=== PATIENT | female | born 1980 | race Caucasian/White ===

== ENCOUNTER 2020-05-14 18:03 | Outpatient (CLI) | payer MEDICAID, SELFPAY ==
[2020-05-14] VITALS (24 sets, daily range): BP systolic 0–137; BP diastolic 0–78; PULSE 90–119; RESP 18; TEMP 36.9; O2SAT 96–98; BMI 27.4
--- NOTE | 2020-05-14 18:17 | USR_ITS ---
PROCEDURE INFORMATION: Exam: US , Limited Exam date and time: 05/14/2020 6:57 PM Age: 39 years old Clinical indication: Lmp or gestational age (in weeks): 33 w 6 d; Other: Bleeding; ; Additional info: Vag bleeding, dates, placenta location, efw, wellbeing TECHNIQUE: Imaging protocol: Real-time ultrasound of the maternal uterus with image documentation. Exam focused on the clinical indication. COMPARISON: [facility] OB > 14 weeks 05/25/2016 2:50 PM FINDINGS: Gestation: Single intrauterine gestation in cephalic presentation with positive heart activity 138 bpm. age 33 weeks 6 days. LOGAN 06/26/2020. Placenta: The placenta is not well imaged. The placenta appears grossly posterior. No grossly visible abruption or previa. Amniotic fluid index: Amniotic fluid index measured at 9.3 cm. BIOMETRY: Estimated weight: weight measured 5 lb 1 oz. Biparietal diameter: BPD 33 weeks 6 days. Head circumference 34 weeks 2 days. Abdominal circumference 34 weeks 0 days. Femur length 33 weeks 1 day. Other findings: age 33 weeks 6 days. LOGAN 06/26/2020. HC/AC ratio 1.02. FL/BPD 76.4. FL/HC 20.9. FL/AC 21.4. All aforemention values are within normal limits. US/ OB limited [id number] IMPRESSION: 1. Single intrauterine gestation in cephalic presentation with positive heart activity and measured gestational age 33 weeks 6 days. 2. Placenta not well imaged but appears grossly posterior without visible abruption or previa.
[2020-05-14] MEDS: lactated ringers 1,000 ML 999 ML IV (18:35)
[2020-05-14 18:42] LABS: Basophils # 0.1 10^3/uL (0.0-0.1); Basophils % 0.2 %; Eosinophils # 0.3 10^3/uL (0.0-0.8); Eosinophils % 1.3 %; Hematocrit 37.3 % (37.0-47.0); Hemoglobin 12.4 g/dL (11.5-15.3); Lymphocytes # 2.3 10^3/uL (0.8-4.8); Lymphocytes % 10.5 %; Mean Corpuscular HGB Conc 33.2 g/dL (30.0-36.0); Mean Corpuscular Hemoglobin 27.8 pg (28.0-34.0); Mean Corpuscular Volume 83.6 fL (81-99); Mean Platelet Volume 10.4 fL (7.4-10.4); Monocytes # 0.9 10^3/uL (0.2-0.9); Monocytes % 4.4 %; Neutrophils # 17.88 10^3/uL (1.8-7.7); Nucleated Red Blood Cells % 0 %; Platelet Count 280 10^3/cmm (130-400); Red Blood Count 4.46 10^6/uL (4.1-5.3); Red Cell Distribution Width 13.4 % (12.1-15.1); White Blood Count 21.6 10^3/uL (4.0-10.0)
--- NOTE | 2020-05-14 18:46 | PC.NURSE ---
pt arrived to L/D via EMS, had 18g right AC saline lock
[2020-05-14 18:56] LABS: Alanine Aminotransferase 9 U/L (0-33); Albumin Level 3.7 g/dL (3.5-5.2); Alkaline Phosphatase 206 IU/L (35-105); Anion Gap 18.6 (5-19); Aspartate Amino Transferase 12 U/L (0-32); Blood Urea Nitrogen 6 mg/dL (6-20); Calcium 8.7 mg/dL (8.5-10.5); Carbon Dioxide 18 mmol/L (22-29); Chloride 101 mmol/L (98-107); Globulin 2.9 g/dL (1.3-4.6); Glomerular Filtration Rate 179.6 mL/min (90-130); Glucose 119 mg/dL (65-115); Osmolality Calculated 275 mOsm/kg (285-295); Potassium 3.6 mmol/L (3.5-5.1); Sodium 134 mmol/L (136-145); Total Bilirubin 0.5 mg/dL (0.15-1.2); Total Protein 6.6 g/dL (6.6-8.7)
[2020-05-14 19:02] LABS: Amphetamines Screen Urine Positive (Negative); Barbiturates Screen Urine Negative (Negative); Benzodiazepines Screen Urine Negative (Negative); Cocaine Screen Urine Negative (Negative); Opiate Screen Urine Positive (Negative); PCP Screen Urine Negative (Negative); THC Screen Urine Negative (Negative)
--- NOTE | 2020-05-14 19:08 | PM.OBGYHP ---
Providers/Chief Complaint Chief Complaint: vaginal bleeding HPI CHEMICAL PLANT OPERATOR History of Present Illness Rosa Isela Land is a 39 year old female who is 7, para 6. She felt that she was approximately 30 weeks gestation. She began bleeding at home when she went to the bathroom. Initially it was very small amount and then she felt like it gushed out . EMS was called and the patient was brought to [facility] Delivery with a soaked pieces of clothing in the genital area and bleeding. A stat ultrasound was done and laboratory work was ordered. 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 The placenta is posterior. She does have decreased amniotic fluid with an TERRELL of 9. She is not osman. She does state that she does not drink very much fluid except for sodas. She has a long history of drug abuse including opioids and methamphetamine and THC. She states that she last took a hydrocodone yesterday. She has not seen anyone for this and she claims that the reason she has in is because of her concern because of the COVID virus. Presently she does not have custody of her other children. Present Details : 7 Para: 6 Review of Systems Const: Denies: fever(s), chills or body aches ENMT: Denies: throat pain or hoarseness Card: Denies: chest pain, palpitations, swelling of feet/ankles or lightheadedness Resp: Denies: dyspnea, productive cough, non-productive cough or wheezing GI: Denies: abdominal pain, nausea, vomiting or hematochezia : Reports: vaginal bleeding (Moderate amount, CBC is pending.); Denies: flank pain or dyspareunia Neuro: Reports: confusion (Nurses report some confusion.); Denies: headache(s), numbness in extremities, weakness in extremities or difficulty walking Psych: Reports: anxiety Medications/Allergies Home Medications Medication Instructions Recorded Confirmed Last Taken Type vit no.[id number] 1 tab PO DAILY 05/14/20 05/14/20 Unknown History [ Vitamin] Allergies Allergy/AdvReac Type Severity Reaction Status Date / Time tramadol Allergy Unknown Verified 05/14/20 18:54 Vitals/I&O/Wt Last Vital Signs Temp 98.5 F 05/14/20 18:17 Pulse 94 05/14/20 18:37 Resp 18 05/14/20 18:17 BP 119/59 05/14/20 18:37 Pulse Ox 96 05/14/20 19:04 Physical Exam Const: COMMON NORMALS: no acute distress GENERAL APPEARANCE: cooperative NUTRITIONAL APPEARANCE: thin ORIENTATION/CONSCIOUSNESS: Yes awake, Yes oriented to person and Yes oriented to place HENMT: HEAD & SCALP: normal to inspection FACE & SINUS: normal facial exam Resp: COMMON NORMALS: normal respiratory effort, No retractions, No use of accessory muscles and clear to auscultation bilaterally Cardio: COMMON NORMALS: regular rate, regular rhythm and No murmurs present (Cardio) GI: COMMON NORMALS: Normal to inspection, nondistended, normoactive bowel sounds present and non-tender PALPATION: Yes Soft to palpation : COMMON NORMALS: Yes no CVA tenderness and Yes normal external appearance OB/EXTERNAL & SPECULUM: vaginal bleeding (Mild on examination at this time.) MANUAL OB EXAM: dilated 1 cm and effaced 25% UTERUS PALPATION: No Uterus tender AMNIOTIC FLUID: no fluid Extremity: COMMON NORMALS: normal to inspection, full ROM and no pedal edema Neuro: COMMON NORMALS: CN's II-XII intact bilaterally, moves all extremities and no focal motor deficits Psych: COMMON NORMALS: cooperative MOOD & AFFECT: Yes anxious (Very happy to find that the baby looks fine on ultrasound.) Data : 05/14/20 18:20 05/14/20 18:20 A&P Assessment and plan (1) 7, currently : She is 7, para 6 with no problems with previous deliveries. She does not have custody of any of her other children secondary to drug use. She has had no care during this . Status: Acute (2) Vaginal bleeding during , antepartum: This appears to have slowed with no obvious abnormality in the placenta and no placenta previa. The vaginal vault does not have any clots and just some old blood on examination. Status: Acute (3) Oligohydramnios antepartum: Plan to hydrate the patient with approximately 2 L of fluid. If her bleeding has slowed at that time will allow the patient to be discharged home to follow-up with this physician or physician of choice shortly. Status: Acute Attestations Medical Necessity Statement*: This patient has an approximately 34-week intrauterine with significant bleeding and required hospitalization. If things resolve I expect this hospital stay to be less than 2 midnights. Time Spent in Patient Care: Greater than 35 minutes Coding Level of Care Code Acute Service Supervisor for Chg Fwd Diagnoses 7, currently Z34.90 Vaginal bleeding during , antepartum O46.90 Oligohydramnios antepartum O41.00X0
[2020-05-14] MEDS: lactated ringers 1,000 ML 500 ML IV (20:07)
[2020-05-14 20:13] LABS: Bilirubin Urine Neg (NEGATIVE); Blood Urine Neg (Negative); Glucose Urine UA Norm (Normal); Ketones Urine Negative (Negative); Leukocyte Esterase Urine Negative (Negative); Nitrate Urine Negative (Negative); Protein Urine Neg (Negative); Urine Appearance Hazy (CLEAR); Urine Color Yellow (Yellow); Urobilinogen Urine Norm (Negative); pH Urine 5 (5-7)
[2020-05-14 20:14] LABS: Add Urine Culture? No; Bacteria Urine TRACE; Mucus Urine 4+; RBC Urine 0-4 /hpf (0-2); Squamous Epithelial Cell Urine 0-4 (0-5)
[2020-05-14 20:22] LABS: HIV 1 & 2 Antibody Non-Reactive (Non-Reactiv); HIV 1 & 2 Antigen Non-Reactive (Non-Reactiv)
[2020-05-14 20:24] LABS: Hepatitis B Surface Antigen Non-Reactive (Nonreactive)
[2020-05-14 20:40] LABS: Rapid Plasma Reagin Syphilis Reactive (Nonreactive)
== END 2020-05-14 21:32 | disposition home or self-care (01) ==
LOC: OPOB 18:07 → OBGYN 18:08
PROVIDERS: Family Provider Family Medicine; Visit Provider Family Medicine
DX: O46.90 Antepartum hemorrhage, unspecified, unspecified trimester (principal); Z3A.00 Weeks of gestation of pregnancy not specified
CPT/HCPCS: 12345; 51702; 59025; 76815; 80053; 80306; 81001; 85025; 86592; 86762; 87340; 87491; 87591; 87806; 96360; 96361; 99211

== ENCOUNTER 2020-05-26 11:30 | Outpatient (CLI) | payer MEDICAID, SELFPAY ==
[2020-05-26] MEDS: penicillin g (L-A) 1,200,000 unit/2 mL Syr 1200000 UNIT IM (17:03)
[2020-05-26 17:14] VITALS: BP 129/80; PULSE 108; RESP 20; TEMP 36.8; O2SAT 97; BMI 25.0
== END 2020-05-26 23:00 | disposition home or self-care (01) ==
LOC: OPS 07-18 16:18
PROVIDERS: Family Provider Family Medicine; Visit Provider Family Medicine
DX: O98.113 Syphilis complicating pregnancy, third trimester (principal); Z3A.00 Weeks of gestation of pregnancy not specified
CPT/HCPCS: 96372; J0561

== ENCOUNTER 2020-06-10 16:19 | Inpatient (IN) | payer MEDICAID, SELFPAY ==
[2020-06-10] VITALS (14 sets, daily range): BP systolic 0–156; BP diastolic 0–116; PULSE 81–101; RESP 16–17; TEMP 36.5–36.8; O2SAT 96–97; BMI 29.2
[2020-06-10 17:17] LABS: Nitrazine Paper, PH Positive
[2020-06-10] MEDS: dextrose 5%-lactated ringers 1,000 ML 125 ML IV (17:54)
[2020-06-10 17:55] LABS: Amphetamines Screen Urine Negative (Negative); Barbiturates Screen Urine Negative (Negative); Benzodiazepines Screen Urine Positive (Negative); Cocaine Screen Urine Negative (Negative); Opiate Screen Urine Negative (Negative); PCP Screen Urine Negative (Negative); THC Screen Urine Negative (Negative)
[2020-06-10] MEDS: fentaNYL 50 mcg/mL INJ 2mL IV (17:55)
[2020-06-10 18:10] LABS: Basophils % 0.3 %; Eosinophils # 0.2 10^3/uL (0.0-0.8); Eosinophils % 1.9 %; Hematocrit 35.4 % (37.0-47.0); Lymphocytes # 2.3 10^3/uL (0.8-4.8); Lymphocytes % 19.7 %; Mean Corpuscular HGB Conc 33.9 g/dL (30.0-36.0); Mean Corpuscular Hemoglobin 27.8 pg (28.0-34.0); Mean Corpuscular Volume 81.9 fL (81-99); Mean Platelet Volume 10.8 fL (7.4-10.4); Monocytes # 0.7 10^3/uL (0.2-0.9); Monocytes % 5.8 %; Neutrophils % 71.8 %; Nucleated Red Blood Cells % 0 %; Platelet Count 314 10^3/cmm (130-400); Red Blood Count 4.32 10^6/uL (4.1-5.3); White Blood Count 11.8 10^3/uL (4.0-10.0)
--- NOTE | 2020-06-10 18:42 | P.PCNOB_ITS ---
Delivery Note: Date of delivery: June 10, 2020 Pre-Delivery Course: The patient is a 39-year-old 7 at 36 weeks estimated gestational age based on a third trimester ultrasound. She presented to the hospital with spontaneous rupture of membranes. She was found to be grossly ruptured. Nitrazine was positive. She was also found to be 7 cm dilated 70% effaced with a favorable cervix. She was noted to have a fore bag which was ruptured. She then quickly progressed to complete and delivered her baby after about 3 pushes. Her was remarkable for having of late care. Her care started about a month ago. Her labs were also remarkable for being RPR positive initially, but multiple follow-up tests were negative. She did receive 1 dose of Bicillin because she was 34 weeks, and we wanted to treat her empirically until we have more definitive answers. She was GBS negative. Her glucose screen was negative. She has a knowledge that she has abused drugs during her . Delivery: DELIVERY: The patient progressed to complete without difficulty. She delivered a male with a weight of 6 pounds 10 ounces with Apgars of 6 8. The baby was delivered from the JJ position. The baby was placed on the mother's abdomen. The baby's mouth and nose were then suctioned. The cord was then clamped and cut after waiting 1 minute. There was no nuchal cord. There was no meconium. The placenta and 3 vessel cord were delivered intact shortly thereafter. The perineum and vaginal vault were carefully examined. No lacerations were noted. Both the mother and the baby were in stable condition. Estimated blood loss was 150 mls A&P Assessment and plan (1) 36 weeks gestation of : Anticipate the mother will have an unremarkable hospital stay. It is highly probable that DFS will take custody of her child. She is aware of that and is trying to overcome her drug addictions. Status: Acute (2) Drug abuse during : Status: Acute (3) Spontaneous vaginal delivery: Status: Acute Coding Level of Care Code Acute Principal Database Developer for Chg Fwd Diagnoses 36 weeks gestation of Z3A.36 Drug abuse during O99.320; F19.10 Spontaneous vaginal delivery O80
--- NOTE | 2020-06-10 20:57 | PC.NURSE ---
Ambulated to room.
[2020-06-11 06:15] VITALS: BP 125/80; PULSE 87; RESP 16; TEMP 36.6; O2SAT 97
[2020-06-11 06:24] LABS: Hematocrit 34.4 % (37.0-47.0); Hemoglobin 11.3 g/dL (11.5-15.3); Mean Corpuscular HGB Conc 32.8 g/dL (30.0-36.0); Mean Corpuscular Hemoglobin 27.4 pg (28.0-34.0); Mean Corpuscular Volume 83.5 fL (81-99); Mean Platelet Volume 10.5 fL (7.4-10.4); Platelet Count 256 10^3/cmm (130-400); Red Blood Count 4.12 10^6/uL (4.1-5.3); Red Cell Distribution Width 13.2 % (12.1-15.1); White Blood Count 12.7 10^3/uL (4.0-10.0)
[2020-06-11] MEDS: HYDROcodone-acetaminophen 5-325 mg Tablet PO ×3 (06:24→19:42)
--- NOTE | 2020-06-11 08:28 | PM.OBGYPN ---
ASSESSMENT CONSULTANT Subjective Subjective: Interval history: The patient is doing well. She has had bleeding and within normal limits. Her pain is been well controlled. There have been no concerns. Labor: Station: 0 Amniotic Membrane Status: Leaking Monitor Mode: External Contraction Pattern: Irregular Status: Category l Vitals/I&O/Wt Last Vital Signs Temp 97.9 F 06/11/20 06:15 Pulse 87 06/11/20 06:15 Resp 16 06/11/20 06:15 BP 125/80 06/11/20 06:15 Pulse Ox 97 06/11/20 06:15 06/10/20 06/11/20 06/11/20 22:59 06:59 14:59 Intake Total 800 / 800 Balance 800 / 800 Weight last 48 hrs Weight 170 lb Physical Exam Narrative: EXAM NARRATIVE: The patient is alert. She appears comfortable. Her heart has a regular rate and rhythm with no murmurs appreciated. Lungs are clear to auscultation bilaterally. Her fundus is firm and below the umbilicus. Data : 06/11/20 06:15 A&P Assessment and plan (1) Spontaneous vaginal delivery: The patient has done very well . We had a discussion about her drug abuse, and she does want to go into rehab. She does understand that she will not be taking her baby home. It feels to me like she is very dedicated to being honest and getting herself cleaned the right way. I will do whatever I can to support her in this process. Status: Acute (2) Drug abuse during : Status: Acute (3) 36 weeks gestation of : Status: Acute Attestations Medical Necessity Statement*: Routine care. Coding Level of Care Code Acute Wild[place] Fire Fighter Specialist for Deshawn Justice Diagnoses Spontaneous vaginal delivery O80 Drug abuse during O99.320; F19.10 36 weeks gestation of Z3A.36
[2020-06-11 08:29] VITALS: BP 127/79; PULSE 88; RESP 16; TEMP 36.4
[2020-06-11] MEDS: docusate sodium 100 mg Capsule PO ×2 (08:41→18:17)
[2020-06-11] MEDS: prenatal vitamin Capsule 1 CAP PO (08:41)
--- NOTE | 2020-06-11 11:18 | PC.NURSE ---
Estefany from [facility] in room to talk with pt.
[2020-06-11 12:10] VITALS: BP 126/72; PULSE 82; RESP 17
[2020-06-11 16:04] VITALS: BP 126/79; PULSE 88; RESP 16; TEMP 36.6
[2020-06-11 22:00] VITALS: BP 124/81; PULSE 88; RESP 16; TEMP 36.6
[2020-06-12 03:51] VITALS: BP 125/81; PULSE 88; RESP 16
[2020-06-12] MEDS: medroxyprogesterone 150 mg/ml SDV 1 mL IM (08:10)
[2020-06-12] MEDS: docusate sodium 100 mg Capsule PO (08:11)
[2020-06-12] MEDS: prenatal vitamin Capsule 1 CAP PO (08:11)
--- NOTE | 2020-06-12 08:18 | PC.NURSE ---
Pt complaining of generalized joint pain
--- NOTE | 2020-06-12 09:36 | PM.OBGYDC ---
Discharge Providers PARACHUTIST/COMBATANT DIVER QUALIFIED Date of Admission: 06/10/20 16:19 Date of Discharge: 06/12/20 Attending Provider at Admission: Herminio Conrad MD Attending Provider at Discharge: Herminio Conrad MD Diagnoses at Discharge Discharge Diagnosis (1) Spontaneous vaginal delivery: Status: Acute (2) Drug abuse during : Status: Acute (3) 36 weeks gestation of : Status: Acute Reason for Visit Reason for Visit: vaginal discharge Hospital Course Hospital Course: The patient presented to the hospital in active labor, with spontaneous rupture of membranes. She quickly progressed to complete and had an unremarkable spontaneous vaginal delivery. Her course is also been unremarkable. Her pain is been well controlled. Her bleeding is been within normal limits. Because she does have known drug use that she was admitted to, and the baby did have amphetamines in his urine, we have talked with her about rehab options. She has appeared to be honest regarding her drug use, and seems to be willing to do what she needs to do to be able to maintain custody of her baby. Custody of her baby is being signed over to child protective services. The patient has been responsible and appropriate throughout her hospital stay. Information Peripartum Data: Infant Delivery Method: Vaginal Physical Exam Narrative: EXAM NARRATIVE: The patient is alert. She appears comfortable. Her heart has a regular rate and rhythm with no murmurs appreciated. Lungs are clear to auscultation bilaterally. Her fundus is firm and below the umbilicus. Discharge Data Vitals: Last Vital Signs Temp 97.9 F 06/11/20 22:00 Pulse 88 06/12/20 03:51 Resp 16 06/12/20 03:51 BP 125/81 06/12/20 03:51 Pulse Ox 97 06/11/20 06:15 Discharge Plan Discharge Patient Disposition: Home Condition: Stable Prescriptions: New ibuprofen 800 mg Tablet 800 mg PO TID Qty: 30 RF: 0 No Action Vitamin 27 mg iron- 800 mcg Tablet 1 tab PO DAILY RF: 0 Discharge Orders: Discharge Order (Routine); Ordered 06/12/20 Ordered By: Herminio Conrad Referrals: Herminio Conrad MD [Family Provider] - 4-7 days Discharge Diet: Usual diet Discharge Activity: Limit activity as instructed Discharge Attestations PARACHUTIST/COMBATANT DIVER QUALIFIED Time Spent in Discharge Care*: greater than 30 min Specific Discharge Activities: Specific discharge activities: educating patient and educating and/or supporting family/caregiver Coding Level of Care Code Acute Data Analyst Etl Developer for Chg Fwd Diagnoses Spontaneous vaginal delivery O80 Drug abuse during O99.320; F19.10 36 weeks gestation of Z3A.36
[2020-06-12 10:05] VITALS: BP 110/65; PULSE 85; RESP 16; TEMP 36.6; O2SAT 98
[2020-06-12] MEDS: HYDROcodone-acetaminophen 5-325 mg Tablet PO (10:31)
--- NOTE | 2020-06-12 11:12 | PC.NURSE ---
Contact information given to patient for [facility].
[2020-06-12 11:37] VITALS: BP 110/65; PULSE 85; RESP 16; TEMP 36.6; O2SAT 98
--- NOTE | 2020-06-13 16:49 | PC.RESP ---
SMOKING CESSATION INFORMATION SENT TO PATIENT.
== END 2020-06-12 12:02 | disposition home or self-care (01) | DRG 807 ==
LOC: OPOB 16:27 → OBGYN 16:28 → OPOB 18:29 → OBGYN 18:29
PROVIDERS: Admitting Provider Family Medicine; Family Provider Family Medicine; Visit Provider Family Medicine
DX: O99.324 Drug use complicating childbirth (principal); Z37.0 Single live birth; F15.90 Other stimulant use, unspecified, uncomplicated; Z3A.36 36 weeks gestation of pregnancy
CPT/HCPCS: 12345; 36415; 59025; 59409; 80306; 83986; 85025; 85027; 96372; 96374; 99211; J1050; J3010

== ENCOUNTER 2025-08-12 11:42 | Emergency (ER) | payer MEDICAID, SELFPAY ==
[2025-08-12 11:45] VITALS: BP 136/86; PULSE 70; RESP 18; TEMP 37; O2SAT 97
--- OUTSIDE RECORDS SUMMARY | 2025-08-12 12:05 | XMS_ITS | Encounter Summary ---
Author Organization [facility] Address [address] [place] [address] Care Team Providers Care Mixer Driver Name Role Phone Randolph Driver DO Primary Care Provider [phone] [phone] Encounter Details Date Type Department Care Team (Late st Contact Info) Description 07/22/2003 Outpatient Historical [facility] [address] [facility] [address] [place] [address] Leny Gerber [facility] [address] [place] [address] SUPERVIS OTHER NORMAL PREG (Primary Dx) Social History Tobacco Use Types Packs/Day Years Used Date Smoking Tobacco: Never Assessed Comments Unknown Sex and Gender Information Value Date Recorded Sex Assigned at Not on file Legal 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
--- OUTSIDE RECORDS SUMMARY | 2025-08-12 12:05 | XMS_ITS | Encounter Summary ---
Author Organization [facility] Address [address] [facility] [place] [address] Care Team Providers Care Bed Setter Name Role Phone Randolph Driver DO Primary Care Provider [phone] Encounter Details Date Type Department Care Team (Late st Contact Info) Description 09/13/2003 Emergency [facility] [address] [facility] [address] Shivam Lozano MD NO ADDRESS ON FILE Sj Ed, Physician NO ADDRESS ON FILE OPEN WOUND OF FINGER (Primary Dx) Social History Tobacco Use Types Packs/Day Years Used Date Smoking Tobacco: Never Assessed Comments Unknown Sex and Gender Information Value Date Recorded Sex Assigned at Not on file 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
--- OUTSIDE RECORDS SUMMARY | 2025-08-12 12:05 | XMS_ITS | Encounter Summary ---
Author Organization [facility] Address [address] [place] [address] Care Team Providers Care Animal Skinner Name Role Phone Randolph Driver DO Primary Care Provider [phone] [phone] Encounter Details Date Type Department Care Team (Latest Contact Info) Description 07/19/2004 Outpatient Historical [facility] Dermatology- Jarvis Sweeney [place] [address] [place] [address] Rodolfo Kruger MD NO ADDRESS ON FILE ACNE NEC (Primary Dx) Social History Tobacco Use Types Packs/Day Years Used Date Smoking Tobacco: Never Assessed Comments Unknown Sex and Gender Information Value Date Recorded Sex Assigned at Not on file 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
--- OUTSIDE RECORDS SUMMARY | 2025-08-12 12:05 | XMS_ITS | Encounter Summary ---
Author Organization [facility] Address [address] [place] [address] Care Team Providers Care Prom Burn Off Operator Name Role Phone Randolph Driver DO Primary Care Provider [phone] [phone] Encounter Details Date Type Department Care Team (Late st Contact Info) Description 08/21/2008 Outpatient Historical [facility] Dragan Shin MD NO ADDRESS ON FILE Social History Tobacco Use Types Packs/Day Years Used Date Smoking Tobacco: Never Assessed Comments Unknown Sex and Gender Information Value Date Recorded Sex Assigned at Not on file Legal Sex Female 3:56 AM RIG HAND Gender Identity Not on file Sexual Orientation Not on file documented as of this encounter Plan of Treatment Not on file documented as of this encounter Procedures Procedure Name Priority Date/Time Associated Diagnosis Comments URINALYSIS W/REFLEX MICROSCOPIC Stat 08/21/2008 10:04 PM CDT documented in this encounter Results * (ABNORMAL) URINALYSIS (08/21/2008 10:04 PM CDT) LEUKOCYTE ESTERASE UA NEGATIVE NEGATIVE [facility] KETONES UA Trace(A) NEGATIVE [facility] MICRO EXAM No No [facility] COLOR UA Yellow Straw [facility] PROTEIN UA NEGATIVE NEGATIVE [facility] BLOOD UA NEGATIVE NEGATIVE [facility] NITRITE UA NEGATIVE NEGATIVE [facility] UROBILINOGEN UA 0.2 0.2 [facility] CLARITY UA Clear Clear [facility] SPECIFIC GRAVITY UA 1.020 <=1.005 [facility] GLUCOSE UA NEGATIVE NEGATIVE [facility] PH UA 6.5 5.0 - 9.0 [facility] BILIRUBIN UA NEGATIVE NEGATIVE [facility] Urine specimen (specimen) 08/21/2008 10:04 PM CDT 08/21/2008 10:48 PM CDT us Dragan Shin MD URINE ORDERABLES Final Result INTERFACE SYSTEM Refer to clinic/hospital department [facility] CLIA# [id number] [address] [place] [address] documented in this encounter Visit Diagnoses Not on filedocumented in this encounter Care Teams Prom Burn Off Operator Relationship Specialty Start Date End Date Randolph Driver DO [address] [place] [id number] PCP - General 09/25/09 documented as of this encounter
--- OUTSIDE RECORDS SUMMARY | 2025-08-12 12:05 | XMS_ITS | Encounter Summary ---
Author Organization [facility] Address [address] [place] [address] Care Team Providers Care Maintenance Planner Name Role Phone DriverRandolph Lopez Primary Care Provider +1 -[phone] Encounter Details Date Type Department Care Team (Late st Contact Info) Description 09/02/2008 Outpatient Historical [facility] Antoine Siu MD [address] [address] Dragan Shin MD NO ADDRESS ON FILE Social History Tobacco Use Types Packs/Day Years Used Date Smoking Tobacco: Never Assessed Comments Unknown Sex and Gender Information Value Date Recorded Sex Assigned at Not on file Legal Sex Female 3:56 AM TRAFFIC CONTROL TECHNICIAN Gender Identity Not on file Sexual Orientation Not on file documented as of this encounter Plan of Treatment Not on file documented as of this encounter Procedures Procedure Name Priority Date/Time Associated Diagnosis Comments CBC WITHOUT DIFFERENTIAL Routine 09/19/2008 2:45 PM TRAFFIC CONTROL TECHNICIAN BLOOD GAS CORD ARTERIAL Stat 09/19/2008 2:58 AM TRAFFIC CONTROL TECHNICIAN BLOOD GAS CORD ARTERIAL Stat 09/19/2008 2:57 AM TRAFFIC CONTROL TECHNICIAN ABORH TYPING Stat 09/18/2008 11:20 PM TRAFFIC CONTROL TECHNICIAN CBC WITHOUT DIFFERENTIAL Stat 09/18/2008 11:20 PM TRAFFIC CONTROL TECHNICIAN BLOOD BANK ANTIBODY SCREEN Stat 09/18/2008 11:20 PM TRAFFIC CONTROL TECHNICIAN documented in this encounter Results * (ABNORMAL) CBC WITHOUT DIFFERENTIAL (09/19/2008 2:45 PM TRAFFIC CONTROL TECHNICIAN) RBC 4.56 4.20 - 5.40 Mil/ul [facility] PLATELETS 216 140 - 440 K/ul [facility] HEMOGLOBIN 13.3 12.0 - 16.0 g/dL [facility] WBC 19.9(H) 4.5 - 11.0 K/ul [facility] HEMATOCRIT 38.8 36.0 - 46.0 % [facility] Blood specimen (specimen) 09/19/2008 2:45 PM TRAFFIC CONTROL TECHNICIAN 09/19/2008 2:51 PM TRAFFIC CONTROL TECHNICIAN us Dragan Shin MD HEMATOLOGY ORDERABLES Final Res ult Performing Organization Address [facility] Phone Number INTERFACE SYSTEM Refer to clinic/hospital department [facility] CLIA# [id number] [address] [place] [address] * BLOOD GAS CORD ARTERIAL (09/19/2008 2:58 AM TRAFFIC CONTROL TECHNICIAN) PO2 CORD ARTERIAL 21 mmHg [facility] O2 SAT EST CORD ARTERIAL 30 % [facility] HCO3 CORD ARTERIAL 25.7 12.0 - 28.0 mmol/l [facility] PH CORD ARTERIAL 7.32 7.25 - 7.45 Unit [facility] TCO2 CORD 27 mmol/l [facility] PCO2 CORD ARTERIAL 49 27 - 49 mmHg [facility] BASE EXCESS CORD ARTERIAL 0 -2 - 3 mmol/l [facility] SPECIMEN DESCRIPTION Venous [facility] Comment: Test Performed By [id number] Sample not collected by [facility] Cord blood specimen (specimen) 09/19/2008 2:58 AM TRAFFIC CONTROL TECHNICIAN 09/19/2008 2:58 AM TRAFFIC CONTROL TECHNICIAN us Dragan Shin MD ABG ORDERABLES Final Result Performing Organization Address City/State/[facility] de Phone Number INTERFACE SYSTEM Refer to clinic/hospital department [facility] CLIA# [id number] [address] [place] [address] * (ABNORMAL) BLOOD GAS CORD ARTERIAL (09/19/2008 2:57 AM TRAFFIC CONTROL TECHNICIAN) O2 SAT EST CORD ARTERIAL 6 % [facility] HCO3 CORD ARTERIAL 29.5(H) 17.0 - 27.0 mmol/l [facility] PH CORD ARTERIAL 7.24 7.18 - 7.38 Unit [facility] TCO2 CORD 32 mmol/l [facility] PCO2 CORD ARTERIAL 69(H) 32 - 36 mmHg [facility] BASE EXCESS CORD ARTERIAL 2 -2 - 3 mmol/l [facility] SPECIMEN DESCRIPTION Arterial [facility] Comment: Test Performed By [id number] Sample not collected by [facility] PO2 CORD ARTERIAL 9 mmHg [facility] Cord blood specimen (specimen) 09/19/2008 2:57 AM TRAFFIC CONTROL TECHNICIAN 09/19/2008 2:58 AM TRAFFIC CONTROL TECHNICIAN us Dragan Shin MD ABG ORDERABLES Final Result Performing Organization Address [facility] Phone Number INTERFACE SYSTEM Refer to clinic/hospital department [facility] CLIA# [id number] [address] [place] [address] * ANTIBODY SCREEN (09/18/2008 11:20 PM TRAFFIC CONTROL TECHNICIAN) ANTIBODY SCREEN Negative [facility] Blood specimen (specimen) 09/18/2008 11:20 PM TRAFFIC CONTROL TECHNICIAN 09/18/2008 11:23 PM TRAFFIC CONTROL TECHNICIAN us Dragan Shin MD BLOOD BANK ORDERABLES Final Res ult Performing Organization Address [facility] de Phone Number INTERFACE SYSTEM Refer to clinic/hospital department [facility] CLIA# [id number] [address] [place] [address] * ABORH TYPING (09/18/2008 11:20 PM TRAFFIC CONTROL TECHNICIAN) ABO/RH TYPE A Positive [facility] Blood specimen (specimen) 09/18/2008 11:20 PM TRAFFIC CONTROL TECHNICIAN 09/18/2008 11:23 PM TRAFFIC CONTROL TECHNICIAN Dragan Shin MD BLOOD BANK ORDERABLES Final Res ult Performing Organization Address City/[facility] de Phone Number INTERFACE SYSTEM Refer to clinic/hospital department [facility] CLIA# [id number] [address] [place] [address] * (ABNORMAL) CBC WITHOUT DIFFERENTIAL (09/18/2008 11:20 PM TRAFFIC CONTROL TECHNICIAN) PLATELETS 215 140 - 440 K/ul [facility] HEMOGLOBIN 13.5 12.0 - 16.0 g/dL [facility] WBC 13.1(H) 4.5 - 11.0 K/ul [facility] HEMATOCRIT 39.1 36.0 - 46.0 % [facility] RBC 4.62 4.20 - 5.40 Mil/ul [facility] Blood specimen (specimen) 09/18/2008 11:20 PM TRAFFIC CONTROL TECHNICIAN 09/18/2008 11:48 PM TRAFFIC CONTROL TECHNICIAN us Dragan Shin MD HEMATOLOGY ORDERABLES Final Res ult Performing Organization Address [facility] de Phone Number INTERFACE SYSTEM Refer to clinic/hospital department [facility] CLIA# [id number] [address] [place] [address] documented in this encounter Visit Diagnoses Not on filedocumented in this encounter Care Teams Maintenance Planner Relationship Specialty Start Date End Date Randolph Driver DO [address] [place] [address] PCP - General 09/25/09 documented as of this encounter
--- OUTSIDE RECORDS SUMMARY | 2025-08-12 12:05 | XMS_ITS | Encounter Summary ---
Author Organization [facility] Address [address] [facility] [place] [address] Care Team Providers Care Senior Db2 Systems Programmer Name Role Phone Randolph Driver DO Primary Care Provider +1 [phone] Encounter Details Date Type Department Care Team (Latest Contact Info) Description 09/23/2003 Inpatient Historical [facility] Labor and Delivery [address] [place] [address] Darlyn Tian DO [address] [facility] [place] [id number] CORD COMPRESS NEC-DELIV (Primary Dx) Social History Tobacco Use Types Packs/Day Years Used Date Smoking Tobacco: Never Assessed Comments Unknown Sex and Gender Information Value Date Recorded Sex Assigned at Not on file Legal Sex Female 3:56 AM CROZER Gender Identity Not on file Sexual Orientation Not on file documented as of this encounter Plan of Treatment Not on file documented as of this encounter Visit Diagnoses Diagnosis Other and unspecified cord entanglement, with compression, complicating labor and delivery, delivered- Primary documented in this encounter Care Teams Senior Db2 Systems Programmer Relationship Specialty Start Date End Date Randolph Driver DO [address] [place] [id number] PCP - General 09/25/09 documented as of this encounter
--- OUTSIDE RECORDS SUMMARY | 2025-08-12 12:06 | XMS_ITS | Encounter Summary ---
Author Organization [facility] Address [address] [facility] Attn: [place] [address] Care Team Providers Care Make Ready Worker Name Role Phone Randolph Driver DO Primary Care Provider +1 [phone] Encounter Details Date Type Department Care Team (Late st Contact Info) Description 08/26/2003 Inpatient Historical Social History Tobacco Use Types Packs/Day Years Used Date Smoking Tobacco: Never Assessed Comments Unknown Sex and Gender Information Value Date Recorded Sex Assigned at Not on file Legal Sex Female 3:56 AM RN MEDICARE Gender Identity Not on file Sexual Orientation Not on file documented as of this encounter Plan of Treatment Not on file documented as of this encounter Visit Diagnoses Not on filedocumented in this encounter Care Teams Make Ready Worker Relationship Specialty Start Date End Date Randolph Driver DO [address] [place] [id number] PCP - General 09/25/09 documented as of this encounter
--- OUTSIDE RECORDS SUMMARY | 2025-08-12 12:06 | XMS_ITS | Clinical Summary ---
Author Organization [facility] Address [address] [place] [address] Care Team Providers Care Can Filling And Closing Machine Tender Name Role Phone DriverRandolph Primary Care Provider +1 [phone] Allergies Active Allergy Reactions Criticality Noted Date Comments Butorphanol Tartrate Abdominal Pain Low 06/24/2014 Tramadol Abdominal Pain Low 01/26/2013 Medications acetaminophen (TYLENOL) 500 mg tablet Take 500 mg by mouth every 6 hours as needed. Active ibuprofen (MOTRIN) 800 mg tablet Take 1 Tablet (800 mg) by mouth every 8 hours as needed for Pain (Sometimes takes 2 of these at a time.). 09/30/2018 Active HYDROcodone-jose taminophen (NORCO) 5-325 mg tabletIndicatio ns:Dental infection Take 1 Tablet by mouth every 4 hours as needed for Pain. Max Daily Amount: 6 Tablets 15 Tablet 07/16/2020 Active Active Problems No known active problems Social History Tobacco Use Types Packs/Day Years Used Date Smoking Tobacco: Every Day Cigarettes Smokeless Tobacco: Never Alcohol Use Standard Drinks/Week Comments No 0 (1 standard drink = 0.6 oz pur e alcohol) Comments No Sex and Gender Information Value Date Recorded Sex Assigned at Not on file Legal Sex Female 3:56 AM COMMUNITY SUPPORT SPECIALIST Gender Identity Not on file Sexual Orientation Not on file Occupation Industry Job Start Date Job End Date Not on file Not on file Not on file Not on file Not on file Not on file Not on file Not on file Last Filed Vital Signs Vital Sign Reading Time Taken Comments Blood Pressure 140/81 07/16/2020 10:26 AM CDT Pulse 104 01/25/2015 7:06 PM CDT Temperature 36.6 C (97.9 F) 07/16/2020 10:26 AM CDT Respiratory Rate 18 07/16/2020 10:2 6 AM CDT Oxygen Saturation 100% 07/16/2020 10: 26 AM CDT Inhaled Oxygen Concentration - - Weight 64.8 kg (142 lb 12.8 oz) 07/16/2020 9:31 AM CDT Height 162.6 cm (5' 4 ) 07/16/2020 9:31 AM CDT Body Mass Index 24.51 07/16/2020 9:31 AM CDT Plan of Treatment Health Maintenance Due Date Last Done Comments DTAP/TDAP/TD VACCINES (1 - Tdap) 2001 HEPATITIS B VACCINES (1 of 3 - 19+ 3-dose series) 06/2001 HPV/Cotest (21-29) 2003 HPV VACCINES (1 - 3-dose SCDM series) 2009 CERVICAL CANCER SCREENING 2012 HPV/Cotest (30-65) 2012 PAP SMEAR 2012 BREAST CANCER SCREENING 2022 INFLUENZA VACCINE (#1) 2025 Insurance [facility] [employer] Care Teams Can Filling And Closing Machine Tender Relationship Specialty Start Date End Date Randolph Driver DO [address] [place] [id number] PCP - General 09/25/09
--- OUTSIDE RECORDS SUMMARY | 2025-08-12 12:06 | XMS_ITS | Encounter Summary ---
Author Organization [facility] Address [address] [place] [address] Care Team Providers Care Marshmallow Runner Name Role Phone Randolph Driver DO Primary Care Provider +1 [phone] Encounter Details Date Type Department Care Team (Latest Contact Info) Description 07/01/2003 Outpatient Historical [facility] [place] [address] [place] [address] Sho Green, LAYBOY TENDER NO ADDRESS ON FILE SUPERVIS OTHER NORMAL PREG (Primary Dx) Social History Tobacco Use Types Packs/Day Years Used Date Smoking Tobacco: Never Assessed Comments Unknown Sex and Gender Information Value Date Recorded Sex Assigned at Not on file Legal Sex Female 3:56 AM TRANSMISSION SUPERINTENDENT Gender Identity Not on file Sexual Orientation Not on file documented as of this encounter Plan of Treatment Not on file documented as of this encounter Visit Diagnoses Diagnosis Supervision of other normal - Primary documented in this encounter Care Teams Marshmallow Runner Relationship Specialty Start Date End Date Randolph Driver DO [address] [place] [address] PCP - General 09/25/09 documented as of this encounter
--- OUTSIDE RECORDS SUMMARY | 2025-08-12 12:06 | XMS_ITS | Encounter Summary ---
Author Organization [facility] Address [address] [place] [address] Care Team Providers Care Luster Applicator Name Role Phone Randolph Driver DO Primary Care Provider [phone] [phone] Encounter Details Date Type Department Care Team (Latest Contact Info) Description 07/12/2003 Outpatient Historical [facility] [place] [address] [place] [address] Liudmila Singletary MD [address] [place] [address] SUPERVIS NORMAL 1ST PREG (Primary Dx); SCREENING NEC Social History Tobacco Use Types Packs/Day Years Used Date Smoking Tobacco: Never Assessed Comments Unknown Sex and Gender Information Value Date Recorded Sex Assigned at Not on file Legal Sex Female 3:56 AM INSPECTING MACHINE ADJUSTER Gender Identity Not on file Sexual Orientation Not on file documented as of this encounter Plan of Treatment Not on file documented as of this encounter Visit Diagnoses Diagnosis Supervision of normal first - Primary Other screening Other specified screening documented in this encounter Care Teams Luster Applicator Relationship Specialty Start Date End Date Randolph Driver DO [address] [place] [address] PCP - General 09/25/09 documented as of this encounter
--- OUTSIDE RECORDS SUMMARY | 2025-08-12 12:06 | XMS_ITS | Clinical Summary ---
Author Organization [facility] Address [address] [facility] Attn: Epic Prelude ADT [place] [address] Care Team Providers Care Deep Submergence Vehicle Operator Name Role Phone Randolph Driver DO Primary Care Provider +1 [phone] Allergies Active Allergy Reactions Criticality Noted Date Comments Butorphanol Tartrate Abdominal Pain Low 06/24/2014 Tramadol Abdominal Pain Low 01/26/2013 Medications HYDROcodone-jose taminophen (NORCO) 5-325 mg tabletIndicatio ns:Dental infection Take 1 Tablet by mouth every 4 hours as needed for Pain. Max Daily Amount: 6 Tablets 15 Tablet 0 07/16/2020 Active ibuprofen (MOTRIN) 800 mg tablet Take 1 Tablet (800 mg) by mouth every 8 hours as needed for Pain (Sometimes takes 2 of these at a time.). 09/30/2018 Active acetaminophen (TYLENOL) 500 mg tablet Take 500 mg by mouth every 6 hours as needed. 01/13/2017 Active Social History Tobacco Use Types Packs/Day Years Used Date Smoking Tobacco: Every Day Cigarettes Smokeless Tobacco: Never Alcohol Use Standard Drinks/Week Comments No 0 (1 standard drink = 0.6 oz pur e alcohol) Comments Unknown Sex and Gender Information Value Date Recorded Sex Assigned at Not on file Legal Sex Female 1:20 PM NEGATIVE CLEANER Gender Identity Not on file Sexual Orientation Not on file Last Filed Vital Signs Vital Sign Reading Time Taken Comments Blood Pressure 140/81 07/16/2020 10:26 AM CDT Pulse 104 01/25/2015 7:06 PM CDT Temperature 36.6 C (97.9 F) 07/16/2020 10:26 AM CDT Respiratory Rate 18 07/16/2020 10:2 6 AM CDT Oxygen Saturation - - Inhaled Oxygen Concentration - - Weight 64.8 [...] CANCER SCREENING 2022 INFLUENZA VACCINE (#1) 2025 Care Teams Deep Submergence Vehicle Operator Relationship Specialty Start Date End Date Randolph Driver DO [address] [place] [address] PCP - General 09/25/09
[2025-08-12 12:22] LABS: Glucose Urine UA Negative (Normal); Nitrate Urine Negative (Negative); Specific Gravity, Urine 1.008 (1.005-1.030)
[2025-08-12 12:28] LABS: Add Urine Microscopic? YES
[2025-08-12 12:42] LABS: Hematocrit 40.0 % (36-47); Hemoglobin 14.00 g/dL (11.27-16.99); Mean Corpuscular HGB Conc 35.0 g/dL (30-55); Mean Corpuscular Hemoglobin 28.5 pg (27-33); Mean Corpuscular Volume 81.3 fl (85-98); Nucleated Red Blood Cells % 0 %; Platelet Count 261 10^3/cmm (157-399); Red Blood Count 4.92 10^6/uL (3.85-5.65); White Blood Count 8.30 10^3/uL (3.29-11.43)
--- NOTE | 2025-08-12 12:52 | ED_ITS ---
HPI - Abdominal Pain 2 General: Chief Complaint: Abdominal Pain Stated Complaint: Lower ABD Cramping Urgeing urination Time Seen by Provider: 08/12/25 12:52 History of Present Illness: 45-year-old female with no significant p ast medical history who presents the emergency room with lower abdominal cramping and increased urinary frequency. She is concerned she might have a urinary tract infection. No nausea or vomiting. No fevers. No altered mental status. She states she did have a slight headache. Related Data Home Medications ?Medication ?Instructions ?Recorded ?Confirmed vits [id number]-[id number] fum 1 tab PO DAILY 06/10/20 27 mg iron-folic acid 800 mcg tablet ( Vitamin) Previous Rx's ?Medication ?Instructions ?Recorded ibuprofen 800 mg tablet 800 mg PO TID #30 tabs 06/12 nitrofurantoin 100 mg PO BID 3 days #6 caps 08/12/25 monohydrate/macrocrystals 100 mg capsule (Macrobid) phenazopyridine 100 mg tablet 100 mg PO Q8H 6 doses #6 tabs 08/12/25 (Pyridium) Allergies Allergy/AdvReac Type Severity Reaction Status Date / Time tramadol Allergy Unknown Verified 05/26/20 17:14 Review of Systems 2 Narrative: Constitutional symptoms: Negative except as documented in HPI. Skin symptoms: Negative except as documented in HPI. Eye symptoms: Negative except as documented in HPI. ENMT symptoms: Negative except as documented in HPI. Respiratory symptoms: Negative except as documented in HPI. Cardiovascular symptoms: Negative except as documented in HPI. Gastrointestinal symptoms: Negative except as documented in HPI. Genitourinary symptoms: Negative except as documented in HPI. Musculoskeletal symptoms: Negative except as documented in HPI. Neurologic symptoms: Negative except as documented in HPI. Psychiatric symptoms: Negative except as documented in HPI. Endocrine symptoms: Negative except as documented in HPI. PFSH ED 2 PFSH: Social History (Updated 06/10/20 @ 19:47 by Génesis Cordova RN) Smoking and tobacco/nicotine status: current every day tobacco/nicotine user cigarettes Packs smoked per day: 1 Quit status (tobacco/nicotine): not considering quitting Substance/Drug Use: current Substance/Drug use frequency: other Physical Exam 2 Narrative: EXAM NARRATIVE: General: Alert, no acute distress. Skin: Warm, dry. Head: Normocephalic, atraumatic. Neck: Supple, trachea midline. Eye: Extraocular movements are intact. Ears, nose, mouth and throat: mucosa moist. Cardiovascular: Regular, Normal peripheral perfusion. Respiratory: Lungs are clear to auscultation, respirations are non-labored, breath sounds are equal, Symmetrical chest wall expansion. Gastrointestinal: Soft, Nontender, Non distended Musculoskeletal: Normal ROM, no deformity. Neurological: Alert and oriented, No focal neurological deficit observed. Psychiatric: Cooperative, appropriate mood & affect. Course 2 Vital Signs: Vital signs: Vital Signs Temperature 98.6 F 08/12/25 11:45 Pulse Rate 69 08/12/25 13:35 Respiratory Rate 16 08/12/25 13:35 Blood Pressure 114/76 08/12/25 13:35 Pulse Oximetry 96 08/12/25 13:35 Oxygen Delivery Me thod Room Air 08/12/25 11:45 MDM - Abdominal Pain Medical Decision Making Medical decision making: Patient's reason for coming to the emergency room: Lower abdominal cramping and dysuria Social determinants: Patient is unemployed I reviewed the patient's medical record. Patient's last family practice visit was with Dr. Conrad in 2019. I reviewed the patient's current home meds: Patient is not currently on any home medications Other historians: No alternative history sources. Differential diagnosis including but not limited to and based on the above HPI, review of systems and physical exam: Differential diagnosis for patient with dysuria / lower abdominal pain: Ureterolithiasis. Urinary tract infection. Cystitis. With the possibility of sepsis, pyelonephritis and renal failure. Orders placed to evaluate differential diagnosis based on the above differential, HPI and physical exam Lab Review: Laboratory results were reviewed and interpreted by myself the emergency room physician. No leukocytosis. No anemia. Urinalysis is negative for infection. Assessment of risk: - Level of risk: Low - Was hospitalization considered? No Reexamination: Patient remained stable. No increased work of breathing. No altered mental status. No focal motor deficits. Assessment and plan: Dysuria - Discharged home - Discussed plan with patient. Answered any questions. - Evaluation and treatment of this problem were appropriate in the emergency setting. Lab Data 08/12/25 12:33 08/12/25 12:33 Labs/Radiology: Laboratory Results WBC 8.30 10^3/uL (3.29-11.43) 08/12/25 12:33 RBC 4.92 10^6/uL (3.85-5.65) 08/12/25 12:33 Hgb 14.00 g/dL (11.27-16.99) 08/12/25 12:33 Hct 40.0 % (36-47) 08/12/25 12:33 MCV 81.3 fl (85-98) L 08/12/25 12:33 MCH 28.5 pg (27-33) 08/12/25 12:33 MCHC 35.0 g/dL (30-55) 08/12/25 12:33 RDW 12.3 % (12.1-15.1) 08/12/25 12:33 Plt Count 261 10^3/cmm (157-399) 08/12/25 12:33 MPV 9.8 fL (7.4-10.4) 08/12/25 12:33 Neut % (Auto) 53.7 % 08/12/25 12:33 Lymph % (Auto) 33.3 % 08/12/25 12:33 [place] % (Auto) 6.0 % 08/12/25 12:33 Eos % (Auto) 6.3 % 08/12/25 12:33 Baso % (Auto) 0.5 % 08/12/25 12:33 Neut # (Auto) 4.46 10^3/uL (1.8-7.7) 08/12/25 12:33 Lymph # (Auto) 2.8 10^3/uL (0.8-4.8) 08/12/25 12:33 [place] # (Auto) 0.5 10^3/uL (0.2-0.9) 08/12/25 12:33 Eos # (Auto) 0.5 10^3/uL (0.0-0.8) 08/12/25 12:33 Baso # (Auto) 0.0 10^3/uL (0.0-0.1) 08/12/25 12:33 Nucleated RBC % (auto) 0 % 08/12/25 12:33 Nucleated RBCs # 0.0 /100WBC 08/12/25 12:33 Sodium 139 mmol/L (136-145) 08/12/25 12:33 Potassium 4.5 mmol/L (3.5-5.1) 08/12/25 12:33 Chloride 101 mmol/L (98-107) 08/12/25 12:33 Carbon Dioxide 26 mmol/L (22-29) 08/12/25 12:33 Anion Gap 16.5 (5-19) 08/12/25 12:33 BUN 8 mg/dL (6-20) 08/12/25 12:33 Creatinine 0.7 mg/dL (0.5-0.9) 08/12/25 12:33 GFR Calculation 91.3 mL/min (90-130) 08/12/25 12:33 Glucose 86 mg/dL (65-115) 08/12/25 12:33 Calculated Osmolality 286 mOsm/kg (285-295) 08/12/25 12:33 Lactic Acid 0.7 mmol/L (0.5-2.2) 08/12/25 12:33 Calcium 9.7 mg/dL (8.5-10.5) 08/12/25 12:33 Total Bilirubin 0.4 mg/dL (0.15-1.2) 08/12/25 12:33 AST 26 U/L (0-32) 08/12/25 12:33 ALT 37 U/L (0-33) H 08/12/25 12:33 Alkaline Phosphatase 163 U/L (35-105) H 08/12/25 12:33 C-Reactive Protein 3.0 mg/L (0.0-4.9) 08/12/25 12:33 Total Protein 7.5 g/dL (6.6-8.7) 08/12/25 12:33 Albumin 4.7 g/dL (3.5-5.2) 08/12/25 12:33 Globulin 2.8 g/dL (1.3-4.6) 08/12/25 12:33 Lipase 22 U/L (13-60) 08/12/25 12:33 Urine Color Yellow (Yellow) 08/12/25 12:05 Urine Appearance Clear (CLEAR) 08/12/25 12:05 Urine pH 6.5 (5-7) 08/12/25 12:05 Ur Specific [place] 1.008 (1.005-1.030) 08/12/25 12:05 Urine Protein Negative (Negative) 08/12/25 12:05 Urine Glucose (UA) Negative (Normal) 08/12/25 12:05 Urine Ketones Negative (Negative) 08/12/25 12:05 Urine Blood Negative (Negative) 08/12/25 12:05 Urine Nitrate Negative (Negative) 08/12/25 12:05 Urine Bilirubin Negative (Negative) 08/12/25 12:05 Urine Urobilinogen 0.2 mg/dL (Negative) 08/12/25 12:05 Ur Leukocyte Esterase Negative (Negative) 08/12/25 12:05 Urine RBC 3-5 /hpf (0-2) 08/12/25 12:05 Urine WBC 0-5 /hpf (0-5) 08/12/25 12:05 Ur Squamous Epith Cells 0-5 /hpf (0-5) 08/12/25 12:05 Amorphous Sediment Not Reportable 08/12/25 12:05 Urine Bacteria None seen /hpf (NONE) 08/12/25 12:05 Hyaline Casts 0-4 /lpf H 08/12/25 12:05 No radiology studies performed this visit Discharge Plan Discharge Patient Disposition: Home Clinical Impression: Dysuria Condition: Stable Prescriptions: New phenazopyridine [Pyridium] 100 mg tablet 100 mg PO Q8H Qty: 6 0RF nitrofurantoin monohyd/m-cryst [Macrobid] 100 mg capsule 100 mg PO BID 3 Days Qty: 6 0RF Rx Instructions: must administer with a meal/food No Action Vitamin 27 mg iron- 800 mcg Tablet 1 tab PO DAILY ibuprofen 800 mg Tablet 800 mg PO TID Qty: 30 0RF Discharge Orders: Discharge ED (Routine); Ordered 08/12/25 Ordered By: Lanie Quezada Referrals: Herminio Conrad MD [Family Provider, Family Practice] Discharge Diet: Usual diet Discharge Activity: Increase activity as tolerated Patient Instructions: Dysuria (ED), Opioid Safety, Pain Management, Patient Portal & Lisa Instructions Activity Restrictions/Additional Instructions: Thank you for choosing [facility] for your healthcare needs today. You have been screened and evaluated and felt safe for discharge. Health conditions do change or evolve sometimes and as such it is important that you follow up with your Primary Doctor to be re checked, 3-5 days is a general good time frame for follow up. You are always welcome to return to the ED for re assessment if your symptoms are worsening or you have new concerns Print Language: Slovak Coding Level of Care Code ED Eye Technician for Deshawn Justice
[2025-08-12 13:10] LABS: Lactic Sepsis W/Reflex 0.7 mmol/L (0.5-2.2)
[2025-08-12 13:12] LABS: Alanine Aminotransferase 37 U/L (0-33); Albumin Level 4.7 g/dL (3.5-5.2); Alkaline Phosphatase 163 U/L (35-105); Anion Gap 16.5 (5-19); Aspartate Amino Transferase 26 U/L (0-32); Blood Urea Nitrogen 8 mg/dL (6-20); Calcium 9.7 mg/dL (8.5-10.5); Carbon Dioxide 26 mmol/L (22-29); Chloride 101 mmol/L (98-107); Creatinine Clr Calc Pharmacy 106.8205; Globulin 2.8 g/dL (1.3-4.6); Glucose 86 mg/dL (65-115); Lipase 22 U/L (13-60); Osmolality Calculated 286 mOsm/kg (285-295); Potassium 4.5 mmol/L (3.5-5.1); Sodium 139 mmol/L (136-145); Total Protein 7.5 g/dL (6.6-8.7)
[2025-08-12 13:35] VITALS: BP 114/76; PULSE 69; RESP 16; O2SAT 96
== END 2025-08-12 13:36 | disposition home or self-care (01) ==
PROVIDERS: Family Medicine; Emergency Provider Emergency Medicine; Family Provider Family Medicine
DX: R30.0 Dysuria (principal); F17.210 Nicotine dependence, cigarettes, uncomplicated
CPT/HCPCS: 36415; 80053; 81001; 83605; 83690; 85025; 86140; 99283